=== PATIENT | female | born 2000 | race Two or more races ===

== ENCOUNTER 2020-12-17 02:04 | Emergency (ER) | payer OTHER ==
[~2020-12-17] VITALS: Ht 149.9 cm; Wt 46.7 kg
[2020-12-17] MEDS ORDERED: NAPROXEN500 MG PO (05:50)
== END 2020-12-17 05:58 | disposition home or self-care (01) ==
LOC: ER 02:04
DX: R10.2 Pelvic and perineal pain (principal)